=== PATIENT | female | born 1965 | race Caucasian/White ===

== ENCOUNTER 2018-09-30 11:30 | Emergency (ER) | payer OTHER ==
[~2018-09-30] VITALS: Ht 160 cm; Wt 72.6 kg
[2018-09-30 12:24] LABS: ABSOLUTE NEUTROPHILS 4.5 thou/uL (1.4-8.2); BASOPHILS 0.3 % (0.0-2.0); EOSINOPHILS 2.2 % (0.0-3.0); HEMATOCRIT 37.7 % (37.0-47.0); LYMPHOCYTES 11.5 % (24.0-44.0); MCHC 34.3 g/dL (28.0-37.0); MCV 93.3 fL (80.0-100.0); PLATELET COUNT 210 thou/uL (150-400); RBC 4.04 mil/uL (4.20-5.00); RDW 12.5 % (10.5-14.5); WBC 5.8 thou/uL (4.0-11.0)
[2018-09-30 12:30] LABS: ANION GAP 10 mmol/L (7-16); BUN 20 mg/dL (7-18); CHLORIDE 104 mmol/L (98-107); CO2 25 mmol/L (21-32); CREATININE 0.8 mg/dL (0.6-1.0); GLUCOSE 106 mg/dL (74-106); POTASSIUM 4.1 mmol/L (3.5-5.1); SODIUM 139 mmol/L (136-145)
[2018-09-30 12:40] LABS: ALBUMIN 3.7 g/dL (3.4-5.0); MAGNESIUM 2.1 mg/dL (1.8-2.4); SGOT 14 U/L (15-37); SGPT 30 U/L (30-65); TOTAL BILIRUBIN 0.4 mg/dL (<0.1-1.0); TOTAL PROTEIN 7.1 g/dL (6.4-8.2); TROPONIN-I <0.06 ng/mL (<0.06)
[2018-09-30] MEDS ORDERED: NAPROSYN500 MG PO (13:10)
[2018-09-30] MEDS ORDERED: PRILOSEC 20 MG20 MG PO (13:10)
[2018-09-30] MEDS ORDERED: NORFLEX100 MG PO (13:10)
[2018-09-30 14:03] VITALS: BP 114/75
--- NOTE | 2018-10-01 07:08 | EKG ---
[address] [place] [address] ELECTROCARDIOGRAM REPORT Name: TOMMY FROST Room #: DEP [id number] ������������������ Admission: 09/30/18 ������������������ Attend Phys: Discharge: 09/30/18 ������������������ Date of : 63 Report #: [id number] ����������������������������������������������������������������� [id number] THIS REPORT FOR: //name// [facility] ED Test Date: 2018-09-30 Test Time: 11:35:55 Pat Name: TOMMY FROST Department: Room: Gender: F Cherry Cutter: VIJAY : 1965 Requested By: Florin Mcpherson Order Number: [id number] MD: Tyrone León Measurements Intervals [place] Rate: 99 P: 27 MD: 148 QRS: 2 QRSD: 91 T: 44 QT: 333 QTc: 428 Interpretive Statements Sinus rhythm Normal tracing No previous ECG available for comparison Electronically Signed On 10-01-2018 7:08:00 CDT by Tyrone León [email or web address] ��������������������������������������������� <ELECTRONICALLY SIGNED> ���������������������������������������� By: Tyrone León MD, [facility] ��������������������������������������������� 10/01/18 [id number] Tyrone León MD, FACC /EPI
== END 2018-09-30 14:12 | disposition home or self-care (01) ==
LOC: ER 11:30
PROVIDERS: Emergency Medicine
DX: R07.89 Other chest pain (principal); K21.9 Gastro-esophageal reflux disease without esophagitis; M43.6 Torticollis; F41.9 Anxiety disorder, unspecified; F17.210 Nicotine dependence, cigarettes, uncomplicated